=== PATIENT | male | born 2000 | race Caucasian/White ===

== ENCOUNTER 2020-06-10 02:12 | Emergency (ER) | payer OTHER ==
[~2020-06-10] VITALS: Ht 154.9 cm; Wt 60.0 kg
[2020-06-10] MEDS ORDERED: PERTUSS(ACELL),DIPH,TET VAC/PF 0.5 ML VIAL IM ONE (03:45)
[2020-06-10] MEDS ORDERED: LIDOCAINE 1%/EPI 1:200,000/PF 30 ML VIAL IM ONE (04:00)
[2020-06-10 06:00] VITALS: BP 119/79
== END 2020-06-10 06:50 | disposition home or self-care (01) ==
LOC: EMS 02:16
DX: S51.012A Laceration without foreign body of left elbow, initial encounter (principal); W45.8XXA Other foreign body or object entering through skin, initial encounter; Y93.89 Activity, other specified; Y92.89 Other specified places as the place of occurrence of the external cause; Y99.8 Other external cause status
CPT/HCPCS: 12044; 73080; 90471; 90715; 96372; 99284; J0690; J3490